=== PATIENT | female | born 1965 | race Caucasian/White ===

== ENCOUNTER 2017-03-27 12:06 | Inpatient (IN) | payer OTHER ==
[2017-03-27 12:28] VITALS: BMI 32.4
--- NOTE | 2017-03-27 13:13 | HP ---
COWS - Scale Resting Pulse: 0= [place] 80 or Below Sweatin=Flushed/Facial Moisture Restless Observation: 3= Extraneous Movement Pupil Size: 2= Moderately Dilated Bone or Joint Aches: 2= Severe Diffuse Aches Runny Nose/ Eye Tearin= Runny Nose/Eyes GI Upset > 30mins: 3= Vomiting/Diarrhea Tremor Observation: 2= Slight Tremor Visible Yawning Observation: 2= >3x During Session Anxiety or Irritability: 2=Irritable/Anxious Goose Flesh Skin: 0=Smooth Skin COWS Score: 20 CIWA Score - CIWA Score Nausea/Vomitin Muscle Tremors: 3 Anxiety: 3 Agitation: 2 Paroxysmal Sweats: 1-Minimal Palms Moist Orientation: 0-Oriented Tacttile Disturbances: 2-Mild Itch/Numbness/Burn Auditory Disturbances: 2-Mild Harshness/Frighten Visual Disturbances: 2-Mild Sensitivity Headache: 2-Mild CIWA-Ar Total Score: 20 Admission ROS BHS - HPI Chief Complaint: i need help to stop using heroin and ativan Allergies/Adverse Reactions: Allergies Allergy/AdvReac Type Severity Reaction Status Date / Time No Known Allergies Allergy Verified 03/27/17 12:37 History of Present Illness: this 51 years old female with heroin and ativan dependence,seeking detox,last treatment [facility] from 02/24/17 to 02/28/17 not completed multiple admissions in detox multiple medical problem type 2 dm,htn,anxiety and depression nicotine dependence longest period of sobriety 10 years Exam Limitations: No Limitations - Ebola screening Have you traveled outside of the country in the last 21 days: No Have you had contact with anyone from an Ebola affected area: No Have you been sick,other than usual withdrawal symptoms: No Do you have a fever: No - Review of Systems Constitutional: Diaphoresis, Loss of Appetite, Malaise, Night Sweats, Changes in sleep, Weakness EENT: reports: Tearing, Nose Congestion Respiratory: reports: No Symptoms reported Cardiac: reports: Palpitations GI: reports: Diarrhea, Nausea, Vomiting, Abdominal cramping : reports: No Symptoms Reported Musculoskeletal: reports: Back Pain, Joint Pain, Muscle Pain, Joint Stiffness Integumentary: reports: Dryness Neuro: reports: Headache, Tremors Endocrine: reports: No Symptoms Reported Hematology: reports: No Symptoms Reported Psychiatric: reports: No Sypmtoms Reported, Judgement Intact, Mood/Affect Appropiate, Anxious, Depressed Patient History - Patient Medical History Hx Anemia: No Hx Asthma: Yes (on albuterol inhaler) Hx Chronic Obstructive Pulmonary Disease (COPD): No Hx Cancer: No Hx Cardiac Disorders: No Hx Congestive Heart Failure: No Hx Hypertension: Yes (on medication) Hx Hypercholesterolemia: No Hx Pacemaker: No HX Cerebrovascular Accident: No Hx Seizures: No Hx Dementia: No Hx Diabetes: Yes (on metformin 500 mgs daily) Hx Gastrointestinal Disorders: No Hx Liver Disease: No Hx Genitourinary Disorders: No Hx Sexually Transmitted Disorders: No (syphilis at 19) Hx Renal Disease (ESRD): No Hx Thyroid Disease: No Hx Human Immunodeficiency Virus (HIV): No (last 2015 negative) Hx Hepatitis C: No Hx Depression: Yes (anxiety ) Hx Suicide Attempt: No Hx Bipolar Disorder: No Hx Schizophrenia: No Other Medical History: no suicidal,no homicidal - Patient Surgical History Past Surgical History: Yes Hx Cholecystectomy: Yes (open cholecystectomy in [facility] in 11/19) - PPD History Previous Implant?: Yes Documented Results: Negative w/o proof Implanted On Prior R Admission?: No PPD to be Administered?: Yes - Reproductive History Patient : No (LMP 8 years ago) - Smoking Cessation Smoking history: Current some day smoker Aproximately how many cigarettes per day: 10 Cigars Per Day: 0 Hx Chewing Tobacco Use: No Initiated information on smoking cessation: Yes 'Breaking Loose' booklet given: 03/27/17 - Substance & Tx. History Hx Alcohol Use: No Hx Substance Use: Yes Substance Use Type: Heroin, Tranquilizers Hx Substance Use Treatment: Yes ([facility] 02/24/[facility] to 02/28/17) - Substances Abused Heroin Route: sniff Frequency: Daily Amount used: 8 to 10 bags/ day Age of first use: 22 Date of Last Use: 03/26/17 ativan Route: Oral Frequency: Daily Amount used: 6 mgs Age of first use: 51 Date of Last Use: 03/27/17 Family Disease History - Family Disease History Family History: Denies Admission Physical Exam BHS - Vital Signs Vital Signs: Vital Signs - 24 hr 03/27/17 12:25 Temperature 98.6 F Pulse Rate 65 Respiratory 18 Rate Blood Pressure 129/87 - Physical General Appearance: Yes: Moderate Distress, Tremorous, Irritable, Sweating, Anxious HEENTM: Yes: Hearing grossly Normal, Normal ENT Inspection, IDALMIS, Pharynx Normal Respiratory: Yes: Lungs Clear, Normal Breath Sounds, No Respiratory Distress Neck: Yes: Within Normal Limits Breast: Yes: Breast Exam Deferred Cardiology: Yes: Tachycardia Abdominal: Yes: Within Normal Limits, Normal Bowel Sounds, Non Tender, Soft Genitourinary: Yes: Within Normal Limits Back: Yes: Muscle Spasm Musculoskeletal: Yes: full range of Motion, Back pain, Joint Stiffness, Muscle Pain Extremities: Yes: Within Normal Limits, Normal Range of Motion, Tremors Neurological: Yes: clinic nurse II-XII NML intact, Alert, Motor Strength 5/5, Normal Mood /Affect Integumentary: Yes: Dry Lymphatic: Yes: Within Normal Limits - Diagnostic (1) Opioid dependence with withdrawal Current Visit: Yes Status: Acute (2) Uncomplicated sedative, hypnotic, or anxiolytic withdrawal Current Visit: Yes Status: Acute (3) Nicotine dependence Current Visit: Yes Status: Acute (4) DM2 (diabetes mellitus, type 2) Current Visit: Yes Status: Acute (5) Essential hypertension Current Visit: Yes Status: Acute (6) Asthma Current Visit: Yes Status: Acute (7) Anxiety and depression Current Visit: Yes Status: Acute Cleared for Admission [facility] - Detox or Rehab [facility] Level of Care: Medically Managed Detox Regimen/Protocol: Methadone/Valium S Breath Alcohol Content Breath Alcohol Content: 0 Urine Pregancy Test - Result Urine Test Results: Negative- NO Line Present Urine Drug Screen - Results Drug Screen Negative: No Urine Drug Screen Results: JUDIE-Cocaine, OPI-Opiates, BZO-Benzodiazepines, MTD- Methadone
[2017-03-27] MEDS ORDERED: ALBUTEROL SO4 6.7 GM HFA INHALER IH PRN (13:40)
[2017-03-27] MEDS ORDERED: P-EPHED 60MG/TRIPROLIDI 2.5MG TABLET PO PRN (13:41)
[2017-03-27] MEDS ORDERED: MAGNESIUM CITRATE 300 ML BOTTLE PO PRN (13:41)
[2017-03-27] MEDS ORDERED: guaiFENesin/D-METHORPHAN HB 10 ML UNIT-DOSE CUPS PO PRN (13:41)
[2017-03-27] MEDS ORDERED: MENTHOL/PHENOL 1 EACH UD MM PRN (13:41)
[2017-03-27] MEDS ORDERED: diazePAM 5 MG TABLET PO ONE (13:41)
[2017-03-27] MEDS ORDERED: IBUPROFEN 400 MG TABLET (FP) PO PRN (13:41)
[2017-03-27] MEDS ORDERED: diazePAM 5 MG TABLET PO PRN (13:41)
[2017-03-27] MEDS ORDERED: MAGNESIUM HYDROX 2400MG/30ML ORAL SUSPENSION 30 ML CUP PO PRN (13:41)
[2017-03-27] MEDS ORDERED: LOPERAMIDE HCL 2 MG CAPSULE PO PRN (13:41)
[2017-03-27] MEDS ORDERED: hydrOXYzine PAMOATE 50 MG CAPSULE (FP) PO PRN (13:41)
[2017-03-27] MEDS ORDERED: ACETAMINOPHEN 325 MG TABLET (FP) PO PRN (13:41)
[2017-03-27] MEDS ORDERED: MAG HYDROX/AL HYDROX/SIMETH 30 ML UNIT-DOSE CUP PO PRN (13:41)
[2017-03-27] MEDS ORDERED: diphenhydrAMINE HCL 50 MG CAPSULE PO PRN (13:41)
[2017-03-27] MEDS ORDERED: METHADONE HCL 10 MG TABLET (FOR DETOX USE ONLY) PO ONE ×2 (14:45→23:00)
[2017-03-27] MEDS: NICOTINE 21 MG/24 HOURS TOPICAL PATCH TD SCH (15:24)
[2017-03-27 19:08] LABS: URINE APPEARANCE SLCLOUDY; URINE BILIRUBIN NEGATIVE (NEGATIVE); URINE BLOOD NEGATIVE (NEGATIVE); URINE COLOR YELLOW; URINE GLUCOSE (UA) NEGATIVE (NEGATIVE); URINE KETONE NEGATIVE (NEGATIVE); URINE LEUK ESTERASE TRACE (NEGATIVE); URINE NITRITE NEGATIVE (NEGATIVE); URINE PROTEIN NEGATIVE (NEGATIVE); URINE UROBILINOGEN NEGATIVE mg/dL (0.2-1.0)
[2017-03-27 19:15] LABS: URINE BACTERIA RARE /hpf (NONE SEEN); URINE MUCUS RARE; URINE RBC 1 /hpf (0-3); URINE WBC 5 /hpf (3-5)
[2017-03-27] MEDS: cloNIDine HCL 0.1 MG TABLET PO SCH (22:22)
[2017-03-27] MEDS: THIAMINE HCL 100 MG TABLET (FP) PO SCH (22:22)
[2017-03-27] MEDS: diazePAM 5 MG TABLET PO SCH (22:22)
[2017-03-28] MEDS: diazePAM 5 MG TABLET PO SCH ×3 (05:50→22:21)
[2017-03-28] MEDS ORDERED: metFORMIN HCL 500 MG TABLET (FP) PO ONE (08:54)
--- NOTE | 2017-03-28 08:57 | CONSULT ---
[facility] Psychiatric Consult - Data Date of interview: 03/28/17 Admission source: [facility] Identifying data: This is 51 years old female with history of no psychiatric hospitalization intoxicated with: Opioids, Xanax and Nicotine Substance Abuse History: - Smoking Cessation. Smoking history: Current some day smoker. Aproximately how many cigarettes per day: 10. Cigars Per Day: 0. Hx Chewing Tobacco Use: No. Initiated information on smoking cessation: Yes. ' Breaking Loose' booklet given: 03/27/17. - Substance & Tx. History. Hx Alcohol Use: No. Hx Substance Use: Yes. Substance Use Type: Heroin, Tranquilizers. Hx Substance Use Treatment: Yes ([facility] 02/24/17 to 02/28/17). - Substances Abused. Heroin. Route: sniff. Frequency: Daily. Amount used: 8 to 10 bags/ day. Age of first use: 22. Date of Last Use: 03/26/17. ativan. Route: Oral. Frequency: Daily. Amount used: 6 mgs. Age of first use : 51. Date of Last Use: 03/27/17 Medical History: Asthma, DM-2, HTN Psychiatric History: Patient reports history of depression and anxiety, reports taking prior to admission: Celexa 20mg poqd. Ambien 10mg po qhs. Seroquel 200mg po qhs Physical/Sexual Abuse/Trauma History: Denies Additional Comment: Celexa 20mg poqd. Ambien 10mg po qhs. Seroquel 200mg po qhs Mental Status Exam - Mental Status Exam Alert and Oriented to: Person Cognitive Function: Fair Patient Appearance: Unkempt Mood: Sad Affect: Flat Patient Behavior: Sedated Speech Pattern: Delayed Voice Loudness: Moderately Soft/Quiet Thought Process: Circumstantial Thought Disorder: Being Controlled Hallucinations: Denies Suicidal Ideation: Denies Homicidal Ideation: Denies Insight/Judgement: Fair Sleep: Difficulty falling asleep Appetite: Weight gain Muscle strength/Tone: Mild Hypotonicity Gait/Station: Shuffling Additional Comments: Celexa 20mg poqd. Ambien 10mg po qhs. Seroquel 200mg po qhs Psychiatric Findings - Problem List ([place] 1, 2,3) (1) Anxiety and depression Current Visit: Yes Status: Acute (2) Nicotine dependence Current Visit: Yes Status: Acute (3) Opioid dependence with withdrawal Current Visit: Yes Status: Acute (4) Uncomplicated sedative, hypnotic, or anxiolytic withdrawal Current Visit: Yes Status: Acute (5) Drug-induced mood disorder Current Visit: Yes Status: Acute - Initial Treatment Plan Initial Treatment Plan: Celexa 20mg poqd. Ambien 10mg po qhs. Seroquel 200mg po qhs
[2017-03-28 09:52] LABS: MCH 25.1 pg (25.7-33.7); MCHC 32.3 g/dl (32.0-36.0); MEAN CELL VOLUME 77.5 fl (80-96); MEAN PLT VOLUME 10.4 fl (7.5-11.1); PLATELET COUNT 166 K/MM3 (134-434); RDW 16.3 % (11.6-15.6); WHITE BLOOD COUNT 8.1 K/mm3 (4.0-10.0)
[2017-03-28] MEDS ORDERED: METHADONE HCL 10 MG TABLET (FOR DETOX USE ONLY) PO SCH (10:00)
[2017-03-28 10:01] LABS: ALBUMIN 3.3 g/dl (3.4-5.0); ANION GAP 5 (8-16); CALCIUM 9.1 mg/dL (8.5-10.1); CO2 29 mmol/L (21-32); GLUCOSE,RANDOM 94 mg/dL (74-106); SGOT/AST 12 U/L (15-37); SGPT/ALT 14 U/L (12-78)
[2017-03-28 10:03] LABS: ALK PHOS 94 U/L (45-117); CREATININE 1.1 mg/dL (0.55-1.02); TOT PROT 6.6 g/dl (6.4-8.2)
--- NOTE | 2017-03-28 10:16 | PN ---
[facility] CIWA - CIWA Score Nausea/Vomitin Muscle Tremors: 3 Anxiety: 3 Agitation: 2 Paroxysmal Sweats: 1-Minimal Palms Moist Orientation: 0-Oriented Tacttile Disturbances: 1-Very Mild Itch/Numbness Auditory Disturbances: 1-Very Mild Visual Disturbances: 1-Very Mild Sensitivity Headache: 2-Mild CIWA-Ar Total Score: 17 BHS COWS - Scale Resting Pulse: 0= [place] 80 or Below Sweatin= Chills/Flushing Restless Observation: 3= Extraneous Movement Pupil Size: 1= Pupils >than Normal Bone or Joint Aches: 2= Severe Diffuse Aches Runny Nose/ Eye Tearin= Runny Nose/Eyes GI Upset > 30mins: 2= Nausea/Diarrhea Tremor Observation of Outstretched Hands: 2= Slight Tremor Visible Yawning Observation: 1= 1-2x During Session Anxiety or Irritability: 2=Irritable/Anxious Goose Flesh Skin: 0=Smooth Skin COWS Score: 16 S Progress Note (SOAP) Subjective: ALERT,IRRITABLE,ANXIOUS,INTERRUPTED SLEEP,PAIN IN THE BODY AND BACK Objective: 03/28/17 10:13 Vital Signs Temperature 97.7 F 03/28/17 09:55 Pulse Rate 63 03/28/17 09:55 Respiratory Rate 18 03/28/17 09:55 Blood Pressure 128/75 03/28/17 09:55 O2 Sat by Pulse Oximetry (%) 03/28/17 10:13 EKG SINUS BRADYCARDIA WITH SINUS ARRHYTHMIA 56/MIN NO CHEST PAIN,NO SOB,NO DIZZINESS Laboratory Last Values WBC 8.1 K/mm3 (4.0-10.0) 03/28/17 06:30 RBC 4.84 M/mm3 (3.60-5.2) 03/28/17 06:30 Hgb 12.1 GM/dL (10.7-15.3) 03/28/17 06:30 Hct 37.5 % (32.4-45.2) 03/28/17 06:30 MCV 77.5 fl (80-96) L 03/28/17 06:30 MCH 25.1 pg (25.7-33.7) L 03/28/17 06:30 MCHC 32.3 g/dl (32.0-36.0) 03/28/17 06:30 RDW 16.3 % (11.6-15.6) H 03/28/17 06:30 Plt Count 166 K/MM3 (134-434) 03/28/17 06:30 MPV 10.4 fl (7.5-11.1) 03/28/17 06:30 POC Glucometer 123 UNITS (()) 03/28/17 05:50 Urine Color Yellow 03/27/17 17:00 Urine Appearance Slcloudy 03/27/17 17:00 Urine pH 5.0 (5.0-8.0) 03/27/17 17:00 Ur Specific [place] 1.015 (1.005-1.025) 03/27/17 17:00 Urine Protein Negative (NEGATIVE) 03/27/17 17:00 Urine Glucose (UA) Negative (NEGATIVE) 03/27/17 17:00 Urine Ketones Negative (NEGATIVE) 03/27/17 17:00 Urine Blood Negative (NEGATIVE) 03/27/17 17:00 Urine Nitrite Negative (NEGATIVE) 03/27/17 17:00 Urine Bilirubin Negative (NEGATIVE) 03/27/17 17:00 Urine Urobilinogen Negative mg/dL (0.2-1.0) 03/27/17 17:00 Ur Leukocyte Esterase Trace (NEGATIVE) 03/27/17 17:00 Urine RBC 1 /hpf (0-3) 03/27/17 17:00 Urine WBC 5 /hpf (3-5) 03/27/17 17:00 Ur Epithelial Cells Few /hpf (FEW) 03/27/17 17:00 Urine Bacteria Rare /hpf (NONE SEEN) 03/27/17 17:00 Urine Mucus Rare 03/27/17 17:00 LABS PENDING Assessment: 03/28/17 10:15 WITHDRAWAL SYMPTOM Plan: CONTINUE DETOX
[2017-03-28 10:23] LABS: BILIRUBIN,TOTAL < 0.1 mg/dL (0.2-1.0)
--- NOTE | 2017-03-28 10:49 | EKG ---
Test Reason : Blood Pressure : / mmHG Vent. Rate : 056 BPM Atrial Rate : 056 BPM P-R Int : 156 ms QRS Dur : 088 ms QT Int : 448 ms P-R-T Axes : 053 017 019 degrees QTc Int : 432 ms SINUS BRADYCARDIA WITH SINUS ARRHYTHMIA OTHERWISE NORMAL ECG NO PREVIOUS ECGS AVAILABLE Confirmed by SWETA ALARCON, KETURAH ([id number]) on 03/28/2017 10:49:29 AM Referred By: Confirmed By:KETURAH SOL MD
[2017-03-28] MEDS: CITALOPRAM HYDROBROMIDE 20 MG TABLET (FP) PO SCH (10:57)
[2017-03-28] MEDS: cloNIDine HCL 0.1 MG TABLET PO SCH ×2 (10:57→22:21)
[2017-03-28] MEDS: LISINOPRIL 20 MG TABLET (FP) PO SCH (10:57)
[2017-03-28] MEDS: PRENATAL VITAMINS W/ FOLIC ACID TABLET (FP) PO SCH (10:57)
[2017-03-28] MEDS: NICOTINE 21 MG/24 HOURS TOPICAL PATCH TD SCH (10:59)
[2017-03-28] MEDS: HYDROCHLOROTHIAZIDE 25 MG TABLET (FP) PO SCH (10:59)
[2017-03-28 11:12] LABS: SICKLE CELL SCREEN POSITIVE (NEGATIVE)
[2017-03-28 13:50] LABS: HIV 1 & 2 AB NEGATIVE; HIV 1 AGp24 NEGATIVE
[2017-03-28] MEDS: THIAMINE HCL 100 MG TABLET (FP) PO SCH (22:21)
[2017-03-28] MEDS: QUEtiapine FUMARATE 200 MG TABLET PO SCH (22:21)
[2017-03-29] MEDS: metFORMIN HCL 500 MG TABLET (FP) PO SCH (07:05)
--- NOTE | 2017-03-29 09:58 | PN ---
[facility] CIWA - CIWA Score Nausea/Vomitin Muscle Tremors: 3 Anxiety: 3 Agitation: 2 Paroxysmal Sweats: 1-Minimal Palms Moist Orientation: 0-Oriented Tacttile Disturbances: 1-Very Mild Itch/Numbness Auditory Disturbances: 1-Very Mild Visual Disturbances: 1-Very Mild Sensitivity Headache: 2-Mild CIWA-Ar Total Score: 17 BHS COWS - Scale Resting Pulse: 0= [place] 80 or Below Sweatin= Chills/Flushing Restless Observation: 3= Extraneous Movement Pupil Size: 1= Pupils >than Normal Bone or Joint Aches: 2= Severe Diffuse Aches Runny Nose/ Eye Tearin= Runny Nose/Eyes GI Upset > 30mins: 3= Vomiting/Diarrhea Tremor Observation of Outstretched Hands: 2= Slight Tremor Visible Yawning Observation: 1= 1-2x During Session Anxiety or Irritability: 2=Irritable/Anxious Goose Flesh Skin: 0=Smooth Skin COWS Score: 17 S Progress Note (SOAP) Subjective: ALERT,IRRITABLE,ANXIOUS,INTERRUPTED SLEEP,TREMOR,PAIN IN THE BODY AND BACK Objective: 03/29/17 09:56 Vital Signs Temperature 97.4 F L 03/29/17 09:45 Pulse Rate 69 03/29/17 09:45 Respiratory Rate 18 03/29/17 09:45 Blood Pressure 134/75 03/29/17 09:45 O2 Sat by Pulse Oximetry (%) Laboratory Last Values WBC 8.1 K/mm3 (4.0-10.0) 03/28/17 06:30 RBC 4.84 M/mm3 (3.60-5.2) 03/28/17 06:30 Hgb 12.1 GM/dL (10.7-15.3) 03/28/17 06:30 Hct 37.5 % (32.4-45.2) 03/28/17 06:30 MCV 77.5 fl (80-96) L 03/28/17 06:30 MCH 25.1 pg (25.7-33.7) L 03/28/17 06:30 MCHC 32.3 g/dl (32.0-36.0) 03/28/17 06:30 RDW 16.3 % (11.6-15.6) H 03/28/17 06:30 Plt Count 166 K/MM3 (134-434) 03/28/17 06:30 MPV 10.4 fl (7.5-11.1) 03/28/17 06:30 Sickle Cell Screen Positive (NEGATIVE) 03/28/17 06:30 Sodium 141 mmol/L (136-145) 03/28/17 06:30 Potassium 3.8 mmol/L (3.5-5.1) 03/28/17 06:30 Chloride 107 mmol/L (98-107) 03/28/17 06:30 Carbon Dioxide 29 mmol/L (21-32) 03/28/17 06:30 Anion Gap 5 (8-16) L 03/28/17 06:30 BUN 28 mg/dL (7-18) H 03/28/17 06:30 Creatinine 1.1 mg/dL (0.55-1.02) H 03/28/17 06:30 Creat Clearance w eGFR 52.36 (>60) 03/28/17 06:30 POC Glucometer 101 UNITS (()) 03/29/17 05:40 Random Glucose 94 mg/dL (74-106) 03/28/17 06:30 Calcium 9.1 mg/dL (8.5-10.1) 03/28/17 06:30 Total Bilirubin < 0.1 mg/dL (0.2-1.0) L 03/28/17 06:30 AST 12 U/L (15-37) L 03/28/17 06:30 ALT 14 U/L (12-78) 03/28/17 06:30 Alkaline Phosphatase 94 U/L (45-117) 03/28/17 06:30 Total Protein 6.6 g/dl (6.4-8.2) 03/28/17 06:30 Albumin 3.3 g/dl (3.4-5.0) L 03/28/17 06:30 Urine Color Yellow 03/27/17 17:00 Urine Appearance Slcloudy 03/27/17 17:00 Urine pH 5.0 (5.0-8.0) 03/27/17 17:00 Ur Specific [place] 1.015 (1.005-1.025) 03/27/17 17:00 Urine Protein Negative (NEGATIVE) 03/27/17 17:00 Urine Glucose (UA) Negative (NEGATIVE) 03/27/17 17:00 Urine Ketones Negative (NEGATIVE) 03/27/17 17:00 Urine Blood Negative (NEGATIVE) 03/27/17 17:00 Urine Nitrite Negative (NEGATIVE) 03/27/17 17:00 Urine Bilirubin Negative (NEGATIVE) 03/27/17 17:00 Urine Urobilinogen Negative mg/dL (0.2-1.0) 03/27/17 17:00 Ur Leukocyte Esterase Trace (NEGATIVE) 03/27/17 17:00 Urine RBC 1 /hpf (0-3) 03/27/17 17:00 Urine WBC 5 /hpf (3-5) 03/27/17 17:00 Ur Epithelial Cells Few /hpf (FEW) 03/27/17 17:00 Urine Bacteria Rare /hpf (NONE SEEN) 03/27/17 17:00 Urine Mucus Rare 03/27/17 17:00 RPR Titer Nonreactive (NONREACTIVE) 03/28/17 06:30 HIV 1&2 Antibody Screen Negative 03/28/17 06:30 HIV P24 Antigen Negative 03/28/17 06:30 Assessment: 03/29/17 09:57 WITHDRAWAL SYMPTOM Plan: CONTINUE DETOX,BGM MONITORING
[2017-03-29] MEDS ORDERED: METHADONE HCL 5 MG TABLET (FOR DETOX USE ONLY) PO SCH (10:00)
[2017-03-29] MEDS: diazePAM 5 MG TABLET PO SCH ×2 (10:33→22:18)
[2017-03-29] MEDS: CITALOPRAM HYDROBROMIDE 20 MG TABLET (FP) PO SCH (10:34)
[2017-03-29] MEDS: HYDROCHLOROTHIAZIDE 25 MG TABLET (FP) PO SCH (10:34)
[2017-03-29] MEDS: NICOTINE 21 MG/24 HOURS TOPICAL PATCH TD SCH (10:34)
[2017-03-29] MEDS: cloNIDine HCL 0.1 MG TABLET PO SCH ×2 (10:34→22:20)
[2017-03-29] MEDS: LISINOPRIL 20 MG TABLET (FP) PO SCH (10:34)
[2017-03-29] MEDS: PRENATAL VITAMINS W/ FOLIC ACID TABLET (FP) PO SCH (10:34)
[2017-03-29] MEDS: QUEtiapine FUMARATE 200 MG TABLET PO SCH (22:18)
[2017-03-29] MEDS: THIAMINE HCL 100 MG TABLET (FP) PO SCH (22:18)
[2017-03-29] MEDS: ZOLPIDEM TARTRATE 10 MG TABLET (PARK CARE ONLY) PO PRN (22:22)
[2017-03-29] MEDS: CYCLOBENZAPRINE HCL 10 MG TABLET (FP) PO PRN (22:22)
[2017-03-30] MEDS: metFORMIN HCL 500 MG TABLET (FP) PO SCH (07:54)
[2017-03-30] MEDS ORDERED: METHADONE HCL 10 MG TABLET (FOR DETOX USE ONLY) PO ONE (10:00)
[2017-03-30] MEDS: LISINOPRIL 20 MG TABLET (FP) PO SCH (10:18)
[2017-03-30] MEDS: HYDROCHLOROTHIAZIDE 25 MG TABLET (FP) PO SCH (10:18)
[2017-03-30] MEDS: NICOTINE 21 MG/24 HOURS TOPICAL PATCH TD SCH (10:18)
[2017-03-30] MEDS: CITALOPRAM HYDROBROMIDE 20 MG TABLET (FP) PO SCH (10:18)
[2017-03-30] MEDS: diazePAM 5 MG TABLET PO SCH ×2 (10:19→22:19)
[2017-03-30] MEDS: cloNIDine HCL 0.1 MG TABLET PO SCH ×2 (10:19→23:13)
[2017-03-30] MEDS: PRENATAL VITAMINS W/ FOLIC ACID TABLET (FP) PO SCH (10:19)
--- NOTE | 2017-03-30 10:19 | PN ---
S Progress Note (SOAP) Subjective: ALERT,IRRITABLE,ANXIOUS,INTERRUPTED SLEEP Objective: 03/30/17 10:18 Vital Signs Temperature 96.3 F L 03/30/17 09:37 Pulse Rate 63 03/30/17 09:37 Respiratory Rate 18 03/30/17 09:37 Blood Pressure 119/81 03/30/17 09:37 O2 Sat by Pulse Oximetry (%) Assessment: 03/30/17 10:18 WITHDRAWAL SYMPTOM BUT LESS Plan: CONTINUE DETOX,MEDICATION ADJUSTED,DISCHARGE IN AM
[2017-03-30] MEDS: QUEtiapine FUMARATE 200 MG TABLET PO SCH (22:19)
[2017-03-30] MEDS: CYCLOBENZAPRINE HCL 10 MG TABLET (FP) PO PRN (22:19)
[2017-03-30] MEDS: ZOLPIDEM TARTRATE 10 MG TABLET (PARK CARE ONLY) PO PRN (22:19)
[2017-03-30] MEDS: THIAMINE HCL 100 MG TABLET (FP) PO SCH (22:20)
[2017-03-30 22:44] VITALS: PULSE 50
[2017-03-31] MEDS ORDERED: METHADONE HCL 5 MG TABLET (FOR DETOX USE ONLY) PO ONE (06:00)
[2017-03-31] MEDS: metFORMIN HCL 500 MG TABLET (FP) PO SCH (06:45)
[2017-03-31 06:54] VITALS: BP 129/62; TEMP 97
--- NOTE | 2017-03-31 08:40 | DS ---
[facility] Detox Discharge Summary Admission Date: 03/27/17 Discharge Date: 03/31/17 - History Present History: Opioid Dependence, Sedative Dependence Additional Comments: FOLLOW UP WITH AFTER CARE ARRANGEMENT Pertinent Past History: NICOTINE DEPENDENCE [id number] MELLITUS ESSENTIAL HYPERTENSION ASTHMA ANXIETY AND DEPRESSION - Physical Exam Results Vital Signs: Vital Signs Temperature 97 F L 03/31/17 06:53 Pulse Rate 50 L 03/31/17 06:53 Respiratory Rate 16 03/31/17 06:53 Blood Pressure 129/62 03/31/17 06:53 O2 Sat by Pulse Oximetry (%) Pertinent Admission Physical Exam Findings: WITHDRAWAL SYMPTOM - Treatment Hospital Course: Detox Protocol Followed, Detoxed Safely, Responded well, Discharged Condition Good Patient has Accepted a Rehab Referral to: DECLINED - Medication Discharge Medications: Ambulatory Orders Citalopram Hydrobromide [Celexa -] 20 mg PO DAILY 03/27/17 Clonidine HCl [Catapres -] 0.1 mg PO BID 03/27/17 Lisinopril/Hydrochlorothiazide [Lisinopril-Hctz 20-25 mg Tab] 20 tab PO DAILY Lorazepam 2 mg PO PRN 03/27/17 Quetiapine Fumarate [Seroquel -] 200 mg PO HS 03/27/17 Zolpidem Tartrate [Ambien] 10 mg PO HS 03/27/17 Citalopram Hydrobromide [Celexa -] 20 mg PO DAILY #30 tablet 03/28/17 Citalopram Hydrobromide [Celexa -] 20 mg PO DAILY #30 tablet 03/28/17 Quetiapine Fumarate [Seroquel -] 200 mg PO HS #30 tab 03/28/17 Quetiapine Fumarate [Seroquel -] 200 mg PO HS #30 tab 03/28/17 Metformin HCl [Glucophage -] 500 mg PO DAILY@0700 #30 tablet 03/31/17 - Diagnosis (1) Opioid dependence with withdrawal Current Visit: Yes Status: Acute (2) Uncomplicated sedative, hypnotic, or anxiolytic withdrawal Current Visit: Yes Status: Acute (3) Nicotine dependence Current Visit: Yes Status: Acute (4) DM2 (diabetes mellitus, type 2) Current Visit: Yes Status: Acute (5) Essential hypertension Current Visit: Yes Status: Acute (6) Asthma Current Visit: Yes Status: Acute (7) Anxiety and depression Current Visit: Yes Status: Acute - AMA Did Patient Leave Against Medical Advice: No
[2017-03-31] MEDS ORDERED: diazePAM 5 MG TABLET PO SCH (10:00)
[2017-03-31] MEDS ORDERED: METHADONE HCL 10 MG TABLET (FOR DETOX USE ONLY) PO SCH (10:00)
[2017-03-31 16:28] LABS: Hgb A2 4.5 % (0.7-3.1)
[2017-04-01] MEDS ORDERED: METHADONE HCL 5 MG TABLET (FOR DETOX USE ONLY) PO SCH (06:00)
== END 2017-03-31 09:48 | disposition home or self-care (01) | DRG 773 ==
LOC: YASAS 12:06 → Y6N 12:53
PROVIDERS: ADMIT Internal Medicine; ATTEND Internal Medicine
PROC: HZ2ZZZZ Detoxification Services for Substance Abuse Treatment (ICD-10-PCS; principal; 2017-03-27)
DX: F11.23 Opioid dependence with withdrawal (principal); F13.230 Sedative, hypnotic or anxiolytic dependence with withdrawal, uncomplicated; F17.210 Nicotine dependence, cigarettes, uncomplicated; F19.24 Other psychoactive substance dependence with psychoactive substance-induced mood disorder; F41.8 Other specified anxiety disorders; E11.9 Type 2 diabetes mellitus without complications; I10 Essential (primary) hypertension; I49.9 Cardiac arrhythmia, unspecified; J45.909 Unspecified asthma, uncomplicated; R00.1 Bradycardia, unspecified; R26.2 Difficulty in walking, not elsewhere classified; Z99.89 Dependence on other enabling machines and devices; Z79.84 Long term (current) use of oral hypoglycemic drugs; Z87.42 Personal history of other diseases of the female genital tract
CPT/HCPCS: 36415; 80053; 81003; 81015; 83021; 85027; 85660; 86593; 87389; 93005; 93010

== ENCOUNTER 2017-10-02 14:13 | Inpatient (IN) | payer OTHER ==
[2017-10-02 16:19] VITALS: BMI 36.1
--- NOTE | 2017-10-02 16:39 | HP ---
COWS - Scale Resting Pulse: 1= [place] 81-100 Sweatin=Flushed/Facial Moisture Restless Observation: 1= Difficult to Sit Still Pupil Size: 2= Moderately Dilated Bone or Joint Aches: 1= Mild Discomfort Runny Nose/ Eye Tearin= Runny Nose/Eyes GI Upset > 30mins: 2= Nausea/Diarrhea Tremor Observation: 2= Slight Tremor Visible Yawning Observation: 1= 1-2x During Session Anxiety or Irritability: 2=Irritable/Anxious Goose Flesh Skin: 0=Smooth Skin COWS Score: 16 CIWA Score - CIWA Score Nausea/Vomitin Muscle Tremors: 3 Anxiety: 4-Mod. Anxious/Guarded Agitation: 4-Moderately Restless Paroxysmal Sweats: 3 Orientation: 0-Oriented Tacttile Disturbances: 0-None Auditory Disturbances: 0-None Visual Disturbances: 0-None Headache: 0-None Present CIWA-Ar Total Score: 17 Admission ROS BHS - HPI Chief Complaint: Withdrawal sx. Allergies/Adverse Reactions: Allergies Allergy/AdvReac Type Severity Reaction Status Date / Time No Known Allergies Allergy Verified 03/27/17 12:37 History of Present Illness: 52 y/o woman with a long hx. of heroin & alcohol dependence is admitted for detox. Pt. has been in previous detox, she reports being drug free from 1989 to 1999. Since then she has not been able to maintain sustain recovery. Exam Limitations: No Limitations - Ebola screening Have you traveled outside of the country in the last 21 days: No (N) Have you had contact with anyone from an Ebola affected area: No Have you been sick,other than usual withdrawal symptoms: No Do you have a fever: No - Review of Systems Constitutional: Diaphoresis EENT: reports: Tearing, Nose Congestion Respiratory: reports: No Symptoms reported Cardiac: reports: No Symptoms Reported GI: reports: Nausea, Abdominal cramping : reports: No Symptoms Reported Musculoskeletal: reports: Joint Pain Integumentary: reports: Sweating Neuro: reports: Tremors Endocrine: reports: Increased Thirst, Increased Urine Hematology: reports: No Symptoms Reported Psychiatric: reports: No Sypmtoms Reported Other Systems: Reviewed and Negative Patient History - Patient Medical History Hx Anemia: No Hx Asthma: Yes (on albuterol inhaler) Hx Chronic Obstructive Pulmonary Disease (COPD): No Hx Cancer: No Hx Cardiac Disorders: No Hx Congestive Heart Failure: No Hx Hypertension: Yes (on medication) Hx Hypercholesterolemia: No Hx Pacemaker: No HX Cerebrovascular Accident: No Hx Seizures: No Hx Dementia: No Hx Diabetes: Yes (on metformin 500 mgs daily) Hx Gastrointestinal Disorders: No Hx Liver Disease: No Hx Genitourinary Disorders: No Hx Sexually Transmitted Disorders: No (syphilis at 19) Hx Renal Disease (ESRD): No Hx Thyroid Disease: No Hx Human Immunodeficiency Virus (HIV): No Hx Hepatitis C: No Hx Depression: Yes (anxiety on celexa & seroquel) Hx Suicide Attempt: No Hx Bipolar Disorder: No Hx Schizophrenia: No - Patient Surgical History Past Surgical History: Yes Hx Cholecystectomy: Yes (open cholecystectomy in [facility] in 11/19) Hx Genitourinary Surgery: Yes (gallstone removal 11/19) - PPD History Date: 03/29/17 Results: 0 mm PPD to be Administered?: No - Reproductive History Patient is a Female of Child Bearing Age (11 -55 yrs old): Yes LMP comment: Post menopause Patient : No - Smoking Cessation Smoking history: Current every day smoker Aproximately how many cigarettes per day: 10 Cigars Per Day: 0 Hx Chewing Tobacco Use: No Initiated information on smoking cessation: Yes 'Breaking Loose' booklet given: 10/02/17 - Substance & Tx. History Hx Alcohol Use: No Hx Substance Use: Yes Substance Use Type: Cocaine, Heroin, Tranquilizers Hx Substance Use Treatment: Yes (detox 03/2017 [facility]) - Substances Abused Alprazolam (Xanax) Route: Oral Frequency: Daily Amount used: 4-6mg Age of first use: 48 Date of Last Use: 09/30/17 Cocaine Route: Inhalation Frequency: Daily Amount used: $20-40 Age of first use: 20 Date of Last Use: 10/01/17 Heroin Route: Inhalation Frequency: Daily Amount used: 12-13 bags Age of first use: 19 Date of Last Use: 10/01/17 Family Disease History - Family Disease History Family Disease History: Other: Brother (drug use) Admission Physical Exam BHS - Vital Signs Vital Signs: Vital Signs - 24 hr 10/02/17 16:17 Temperature 97.5 F L Pulse Rate 95 H Respiratory 18 Rate Blood Pressure 148/76 - Physical General Appearance: Yes: Within Normal Limits HEENTM: Yes: Within Normal Limits Respiratory: Yes: Chest Non-Tender, Lungs Clear, Normal Breath Sounds Neck: Yes: Supple Breast: Yes: Breast Exam Deferred Cardiology: Yes: Systolic Murmur (2nd intercostal right of sternum) Abdominal: Yes: Normal Bowel Sounds, Non Tender, Soft Genitourinary: Yes: Within Normal Limits Back: Yes: Within Normal Limits Musculoskeletal: Yes: Within Normal Limits Extremities: Yes: Tremors Neurological: Yes: Fully Oriented, Alert Integumentary: Yes: Within Normal Limits Lymphatic: Yes: Within Normal Limits - Diagnostic (1) DM2 (diabetes mellitus, type 2) Current Visit: Yes Status: Acute Qualifiers: Diabetes mellitus complication status: without complication Diabetes mellitus buttermaker insulin use: without shelter use Qualified Code(s): E11.9 - Type 2 diabetes mellitus without complications (2) Essential hypertension Current Visit: Yes Status: Acute (3) Opioid dependence with withdrawal Current Visit: Yes Status: Acute (4) Uncomplicated sedative, hypnotic, or anxiolytic withdrawal Current Visit: Yes Status: Acute Cleared for Admission [facility] - Detox or Rehab [facility] Level of Care: Medically Managed Detox Regimen/Protocol: Methadone/Valium [facility] Breath Alcohol Content Breath Alcohol Content: 0 Urine Pregancy Test - Result Urine Test Results: Negative- NO Line Present Urine Drug Screen - Results Drug Screen Negative: No Urine Drug Screen Results: JUDIE-Cocaine, OPI-Opiates, BZO-Benzodiazepines
[2017-10-02] MEDS ORDERED: METHADONE HCL 10 MG TABLET (FOR DETOX USE ONLY) PO ONE ×2 (16:57→23:00)
[2017-10-02] MEDS ORDERED: P-EPHED 60MG/TRIPROLIDI 2.5MG TABLET PO PRN (16:57)
[2017-10-02] MEDS ORDERED: diazePAM 5 MG TABLET PO ONE (16:57)
[2017-10-02] MEDS ORDERED: MAG HYDROX/AL HYDROX/SIMETH 30 ML UNIT-DOSE CUP PO PRN (16:57)
[2017-10-02] MEDS ORDERED: MAGNESIUM CITRATE 300 ML BOTTLE PO PRN (16:57)
[2017-10-02] MEDS ORDERED: LOPERAMIDE HCL 2 MG CAPSULE PO PRN (16:57)
[2017-10-02] MEDS ORDERED: diazePAM 5 MG TABLET PO PRN (16:57)
[2017-10-02] MEDS ORDERED: MAGNESIUM HYDROX 2400MG/30ML ORAL SUSPENSION 30 ML CUP PO PRN (16:57)
[2017-10-02] MEDS: FUROSEMIDE 20 MG TABLET (FP) PO SCH (18:45)
[2017-10-02] MEDS: LISINOPRIL 20 MG TABLET (FP) PO SCH (18:45)
[2017-10-02] MEDS: NICOTINE 21 MG/24 HOURS TOPICAL PATCH TD SCH (18:45)
[2017-10-02 22:30] LABS: URINE APPEARANCE CLEAR; URINE BILIRUBIN NEGATIVE (NEGATIVE); URINE BLOOD NEGATIVE (NEGATIVE); URINE COLOR LTYELLOW; URINE GLUCOSE (UA) NEGATIVE (NEGATIVE); URINE KETONE NEGATIVE (NEGATIVE); URINE LEUK ESTERASE NEGATIVE (NEGATIVE); URINE NITRITE NEGATIVE (NEGATIVE); URINE PROTEIN NEGATIVE (NEGATIVE); URINE UROBILINOGEN NEGATIVE mg/dL (0.2-1.0)
[2017-10-02] MEDS: THIAMINE HCL 100 MG TABLET (FP) PO SCH (22:41)
[2017-10-02] MEDS: diazePAM 5 MG TABLET PO SCH (22:41)
[2017-10-02] MEDS: guaiFENesin/D-METHORPHAN HB 10 ML UNIT-DOSE CUPS PO PRN (22:43)
[2017-10-02] MEDS: IBUPROFEN 400 MG TABLET (FP) PO PRN (23:20)
[2017-10-03] MEDS: metFORMIN HCL 500 MG TABLET (FP) PO SCH (07:38)
[2017-10-03] MEDS: diazePAM 5 MG TABLET PO SCH ×3 (07:38→22:11)
[2017-10-03] MEDS: guaiFENesin/D-METHORPHAN HB 10 ML UNIT-DOSE CUPS PO PRN ×3 (07:39→22:12)
[2017-10-03] MEDS: INSULIN SLIDING SCALE (NOVOLOG) 1 VIAL SQ SCH ×2 (07:47→17:57)
[2017-10-03] MEDS ORDERED: METHADONE HCL 10 MG TABLET (FOR DETOX USE ONLY) PO SCH (10:00)
[2017-10-03 10:14] LABS: HEMATOCRIT 41.6 % (32.4-45.2); HEMOGLOBIN 13.3 GM/dL (10.7-15.3); MCH 25.6 pg (25.7-33.7); MCHC 31.9 g/dl (32.0-36.0); MEAN CELL VOLUME 80.4 fl (80-96); MEAN PLT VOLUME 10.8 fl (7.5-11.1); PLATELET COUNT 150 K/MM3 (134-434); RBC 5.18 M/mm3 (3.60-5.2); RDW 14.6 % (11.6-15.6); WHITE BLOOD COUNT 7.3 K/mm3 (4.0-10.0)
--- NOTE | 2017-10-03 10:15 | PN ---
[facility] CIWA - CIWA Score Nausea/Vomitin-Mild Nausea/No Vomiting Muscle Tremors: 3 Anxiety: 3 Agitation: 3 Paroxysmal Sweats: 1-Minimal Palms Moist Orientation: 0-Oriented Tacttile Disturbances: 1-Very Mild Itch/Numbness Auditory Disturbances: 0-None Visual Disturbances: 0-None Headache: 1-Very Mild CIWA-Ar Total Score: 13 BHS COWS - Scale Resting Pulse: 1= [place] 81-100 Sweatin= Chills/Flushing Restless Observation: 1= Difficult to Sit Still Pupil Size: 0= Normal to Room Light Bone or Joint Aches: 2= Severe Diffuse Aches Runny Nose/ Eye Tearin= Runny Nose/Eyes GI Upset > 30mins: 1= Stomach Cramp Tremor Observation of Outstretched Hands: 1= Tremor [place], Not Seen Yawning Observation: 0= None Anxiety or Irritability: 2=Irritable/Anxious Goose Flesh Skin: 0=Smooth Skin COWS Score: 11 [facility] Progress Note (SOAP) Subjective: joint aches sweat tremor GI upset irritable agitation Objective: 10/03/17 10:17 Vital Signs Temperature 97.5 F L 10/03/17 06:19 Pulse Rate 65 10/03/17 06:19 Respiratory Rate 16 10/03/17 06:19 Blood Pressure 102/52 10/03/17 06:19 O2 Sat by Pulse Oximetry (%) Laboratory Last Values POC Glucometer 100 UNITS (80-120) 10/03/17 07:37 Urine Color Ltyellow 10/02/17 15:18 Urine Appearance Clear 10/02/17 15:18 Urine pH 7.0 (5.0-8.0) D 10/02/17 15:18 Ur Specific [place] 1.011 (1.001-1.035) 10/02/17 15:18 Urine Protein Negative (NEGATIVE) 10/02/17 15:18 Urine Glucose (UA) Negative (NEGATIVE) 10/02/17 15:18 Urine Ketones Negative (NEGATIVE) 10/02/17 15:18 Urine Blood Negative (NEGATIVE) 10/02/17 15:18 Urine Nitrite Negative (NEGATIVE) 10/02/17 15:18 Urine Bilirubin Negative (NEGATIVE) 10/02/17 15:18 Urine Urobilinogen Negative mg/dL (0.2-1.0) 10/02/17 15:18 Ur Leukocyte Esterase Negative (NEGATIVE) 10/02/17 15:18 Assessment: 10/03/17 10:17 withdrawal sx Plan: continue detox
[2017-10-03 10:47] LABS: ALBUMIN 3.4 g/dl (3.4-5.0); ALK PHOS 90 U/L (45-117); ANION GAP 7 (8-16); BILIRUBIN,TOTAL 0.4 mg/dL (0.2-1.0); BLOOD UREA NITROGEN 19 mg/dL (7-18); CALCIUM 8.3 mg/dL (8.5-10.1); CHLORIDE 103 mmol/L (98-107); CO2 31 mmol/L (21-32); CREATININE 1.4 mg/dL (0.55-1.02); GLUCOSE,RANDOM 101 mg/dL (74-106); POTASSIUM 3.6 mmol/L (3.5-5.1); SGOT/AST 11 U/L (15-37); SGPT/ALT 17 U/L (12-78); SODIUM 141 mmol/L (136-145)
[2017-10-03] MEDS: NICOTINE 21 MG/24 HOURS TOPICAL PATCH TD SCH (10:58)
[2017-10-03] MEDS: FUROSEMIDE 20 MG TABLET (FP) PO SCH (10:58)
[2017-10-03] MEDS: PRENATAL VITAMINS W/ FOLIC ACID TABLET (FP) PO SCH (10:58)
[2017-10-03] MEDS: LISINOPRIL 20 MG TABLET (FP) PO SCH (10:58)
[2017-10-03] MEDS: MENTHOL/PHENOL 1 EACH UD MM PRN ×3 (11:02→22:13)
[2017-10-03] MEDS ORDERED: ONDANSETRON *ODT* 4 MG TABLET SL ONE (11:48)
--- NOTE | 2017-10-03 12:29 | CONSULT ---
[facility] Psychiatric Consult - Data Date of interview: 10/03/17 Admission source: [facility] Identifying data: Pt. is a 52 year old female, single, mother of four, and currently unemployed. This is one of multiple admissions for patient. Pt. admitted to for benzodiazepine, cocaine, and opiate dependence. Substance Abuse History: Following information confirmed with Ms. Pérez: - Smoking Cessation. Smoking history: Current every day smoker. Aproximately how many cigarettes per day: 10. Cigars Per Day: 0. Hx Chewing Tobacco Use: No. Initiated information on smoking cessation: Yes. 'Breaking Loose' booklet given: 10/02/17. - Substance & Tx. History. Hx Alcohol Use: No. Hx Substance Use: Yes. Substance Use Type: Cocaine, Heroin, Tranquilizers. Hx Substance Use Treatment: Yes (detox 03/2017 [facility]). - Substances Abused. Alprazolam ( Xanax). Route: Oral. Frequency: Daily. Amount used: 4-6mg. Age of first use : 48. Date of Last Use: 09/30/17. Cocaine. Route: Inhalation. Frequency: Daily. Amount used: $20-40. Age of first use: 20. Date of Last Use: . Heroin. Route: Inhalation. Frequency: Daily. Amount used: 12-13 bags. Age of first use: 19. Date of Last Use: 10/01/17 Medical History: Asthma, hypertension, diabetes Psychiatric History: Pt. denies h/o psychiatric hospitalization and suicide attempts. Reports OPC at [facility]. Diagnosed with anxiety and panic attacks. States she is currently prescribed Paxil 30mg and seroquel 100mg. As per pharmacy claims, a prescription of paxil 30mg was sent on 09/02/2017, and a prescription of Seroquel 50mg was sent on 07/07/17. Pt. is also prescribed ambien. Most recent ambien prescription was sent on 09/30/2017. Physical/Sexual Abuse/Trauma History: Denies. Mental Status Exam - Mental Status Exam Alert and Oriented to: Time, Place, Person Cognitive Function: Good Patient Appearance: Unkempt Mood: Withdrawn Affect: Mood Congruent Patient Behavior: Guarded, Cooperative Speech Pattern: Delayed Voice Loudness: Normal Thought Process: Goal Oriented Thought Disorder: Not Present Hallucinations: Denies Suicidal Ideation: Denies Homicidal Ideation: Denies Insight/Judgement: Poor Sleep: Poorly Appetite: Fair Muscle strength/Tone: Normal Gait/Station: Other (Did not observe patient's gait.) Psychiatric Findings - Problem List ([place] 1, 2,3) (1) Cocaine dependence Current Visit: Yes Status: Acute (2) Opioid dependence with withdrawal Current Visit: Yes Status: Acute (3) Uncomplicated sedative, hypnotic, or anxiolytic withdrawal Current Visit: Yes Status: Acute (4) Nicotine dependence Current Visit: Yes Status: Chronic (5) JULI (generalized anxiety disorder) Current Visit: Yes Status: Chronic Comment: Self reports. Paxil 30mg PO daily ordered. (6) Panic disorder Current Visit: Yes Status: Chronic Comment: Self reports. Paxil 30mg PO ordered. - Initial Treatment Plan Initial Treatment Plan: Psychoeducation provided. Detoxification provided. Paxil 30mg PO daily and seroquel 50mg qhs ordered. Benefits and side effects discussed. Verbal consent given. Will continue to monitor patient.
--- NOTE | 2017-10-03 13:09 | EKG ---
Test Reason : Blood Pressure : / mmHG Vent. Rate : 074 BPM Atrial Rate : 074 BPM P-R Int : 140 ms QRS Dur : 086 ms QT Int : 412 ms P-R-T Axes : 061 005 016 degrees QTc Int : 457 ms NORMAL SINUS RHYTHM POSSIBLE LEFT ATRIAL ENLARGEMENT LEFT VENTRICULAR HYPERTROPHY ABNORMAL ECG WHEN COMPARED WITH ECG OF 27-MAR-2017 13:57, NO SIGNIFICANT CHANGE WAS FOUND Confirmed by BRONWYN ALARCON, DAYNE ([id number]) on 10/03/2017 1:09:41 PM Referred By: Marino Tafoya Confirmed By:DAYNE BARNHART MD
[2017-10-03] MEDS: IBUPROFEN 400 MG TABLET (FP) PO PRN (18:08)
[2017-10-03] MEDS: CYCLOBENZAPRINE HCL 10 MG TABLET (FP) PO PRN (22:10)
[2017-10-03] MEDS: QUEtiapine FUMARATE 50 MG TABLET PO SCH (22:10)
[2017-10-03] MEDS: THIAMINE HCL 100 MG TABLET (FP) PO SCH (22:10)
[2017-10-04] MEDS: guaiFENesin/D-METHORPHAN HB 10 ML UNIT-DOSE CUPS PO PRN ×2 (04:16→22:27)
[2017-10-04] MEDS: MENTHOL/PHENOL 1 EACH UD MM PRN ×2 (04:17→22:27)
[2017-10-04] MEDS: INSULIN SLIDING SCALE (NOVOLOG) 1 VIAL SQ SCH ×2 (08:24→16:51)
[2017-10-04] MEDS: ACETAMINOPHEN 325 MG TABLET (FP) PO PRN ×2 (08:28→22:24)
[2017-10-04] MEDS: metFORMIN HCL 500 MG TABLET (FP) PO SCH (08:28)
[2017-10-04] MEDS ORDERED: ALBUTEROL SO4 18 GM HFA INHALER IH PRN (08:32)
[2017-10-04] MEDS ORDERED: ALBUTEROL SO4 2.5/IPRATROPIUM 0.5 INH SOL 3 ML VIAL.NEB. NEB ONE (08:53)
--- NOTE | 2017-10-04 08:57 | PN ---
[facility] CIWA - CIWA Score Nausea/Vomitin Muscle Tremors: 3 Anxiety: 3 Agitation: 3 Paroxysmal Sweats: 3 Orientation: 0-Oriented Tacttile Disturbances: 0-None Auditory Disturbances: 0-None Visual Disturbances: 0-None Headache: 0-None Present CIWA-Ar Total Score: 15 BHS COWS - Scale Resting Pulse: 1= [place] 81-100 Sweatin= Chills/Flushing Restless Observation: 1= Difficult to Sit Still Pupil Size: 1= Pupils >than Normal Bone or Joint Aches: 1= Mild Discomfort Runny Nose/ Eye Tearin= Nasal Congestion GI Upset > 30mins: 2= Nausea/Diarrhea Tremor Observation of Outstretched Hands: 2= Slight Tremor Visible Yawning Observation: 1= 1-2x During Session Anxiety or Irritability: 2=Irritable/Anxious Goose Flesh Skin: 3=Piloerection COWS Score: 16 S Progress Note (SOAP) Subjective: nausea, sweats, interrupted sleep, anxiety, tremors, wheezing requesting nebulizer and inhaler Objective: 10/04/17 08:55 Vital Signs - 24 hr 10/03/17 10/03/17 10/03/17 11:02 15:29 17:55 Temperature 96.9 F L 98.0 F 102.2 F H Pulse Rate 92 H 96 H 97 H Respiratory 18 18 20 Rate Blood Pressure 149/70 148/70 129/67 10/03/17 10/04/17 10/04/17 21:55 00:30 06:27 Temperature 98.1 F 98.1 F Pulse Rate 94 H 99 H Respiratory 18 18 20 Rate Blood Pressure 131/66 147/72 Laboratory Tests 10/02/17 10/02/17 10/03/17 15:18 18:43 07:30 WBC 7.3 RBC 5.18 Hgb 13.3 Hct 41.6 MCV 80.4 MCH 25.6 L MCHC 31.9 L RDW 14.6 D Plt Count 150 MPV 10.8 Sodium Potassium Chloride Carbon Dioxide Anion Gap BUN Creatinine Creat Clearance w eGFR POC Glucometer 141 Random Glucose Calcium Total Bilirubin AST ALT Alkaline Phosphatase Total Protein Albumin Urine Color Ltyellow Urine Appearance Clear Urine pH 7.0 D Ur Specific [place] 1.011 Urine Protein Negative Urine Glucose (UA) Negative Urine Ketones Negative Urine Blood Negative Urine Nitrite Negative Urine Bilirubin Negative Urine Urobilinogen Negative Ur Leukocyte Esterase Negative RPR Titer 10/03/17 10/03/17 10/03/17 07:30 07:30 07:37 WBC RBC Hgb Hct MCV MCH MCHC RDW Plt Count MPV Sodium 141 Potassium 3.6 Chloride 103 Carbon Dioxide 31 Anion Gap 7 L BUN 19 H Creatinine 1.4 H Creat Clearance w eGFR 39.49 POC Glucometer 100 Random Glucose 101 Calcium 8.3 L Total Bilirubin 0.4 D AST 11 L ALT 17 Alkaline Phosphatase 90 Total Protein 7.0 Albumin 3.4 Urine Color Urine Appearance Urine pH Ur Specific [place] Urine Protein Urine Glucose (UA) Urine Ketones Urine Blood Urine Nitrite Urine Bilirubin Urine Urobilinogen Ur Leukocyte Esterase RPR Titer Nonreactive 10/04/17 07:39 WBC RBC Hgb Hct MCV MCH MCHC RDW Plt Count MPV Sodium Potassium Chloride Carbon Dioxide Anion Gap BUN Creatinine Creat Clearance w eGFR POC Glucometer 129 Random Glucose Calcium Total Bilirubin AST ALT Alkaline Phosphatase Total Protein Albumin Urine Color Urine Appearance Urine pH Ur Specific [place] Urine Protein Urine Glucose (UA) Urine Ketones Urine Blood Urine Nitrite Urine Bilirubin Urine Urobilinogen Ur Leukocyte Esterase RPR Titer wheezing adn cough noted a and o x3 no accessory muscles use, no SOB at rest Assessment: 10/04/17 08:56 withdrawal sx, cont detox, fluids, asthma albuteraol and duoneb ordered , give now
[2017-10-04] MEDS: LISINOPRIL 20 MG TABLET (FP) PO SCH (10:56)
[2017-10-04] MEDS: PRENATAL VITAMINS W/ FOLIC ACID TABLET (FP) PO SCH (10:56)
[2017-10-04] MEDS: diazePAM 5 MG TABLET PO SCH ×2 (10:56→22:23)
[2017-10-04] MEDS: METHADONE HCL 5 MG TABLET (FOR DETOX USE ONLY) PO SCH (10:56)
[2017-10-04] MEDS: FUROSEMIDE 20 MG TABLET (FP) PO SCH (10:56)
[2017-10-04] MEDS: PARoxetine HCL 10 MG TABLET (FP) PO SCH (10:57)
[2017-10-04] MEDS: NICOTINE 21 MG/24 HOURS TOPICAL PATCH TD SCH (10:57)
[2017-10-04] MEDS: ALBUTEROL SO4 2.5/IPRATROPIUM 0.5 INH SOL 3 ML VIAL.NEB. NEB PRN (21:06)
[2017-10-04] MEDS: THIAMINE HCL 100 MG TABLET (FP) PO SCH (22:23)
[2017-10-04] MEDS: QUEtiapine FUMARATE 50 MG TABLET PO SCH (22:24)
[2017-10-04] MEDS: CYCLOBENZAPRINE HCL 10 MG TABLET (FP) PO PRN (22:24)
[2017-10-04] MEDS: NICOTINE POLACRILEX 2 MG GUM BC PRN (23:12)
[2017-10-05] MEDS: ALBUTEROL SO4 2.5/IPRATROPIUM 0.5 INH SOL 3 ML VIAL.NEB. NEB PRN ×2 (06:24→23:28)
[2017-10-05] MEDS: INSULIN SLIDING SCALE (NOVOLOG) 1 VIAL SQ SCH ×2 (06:40→17:09)
[2017-10-05] MEDS: metFORMIN HCL 500 MG TABLET (FP) PO SCH (06:40)
[2017-10-05] MEDS: LISINOPRIL 20 MG TABLET (FP) PO SCH (09:01)
[2017-10-05] MEDS: FUROSEMIDE 20 MG TABLET (FP) PO SCH (09:01)
[2017-10-05] MEDS ORDERED: METHADONE HCL 10 MG TABLET (FOR DETOX USE ONLY) PO SCH (10:00)
--- NOTE | 2017-10-05 10:33 | PN ---
[facility] Progress Note (SOAP) Subjective: mild tremor less sweat calm report feeling better wants to go home 10/06/17 am patient agrees to follow up aftercare as arranged by the counselor Objective: 10/05/17 10:31 Vital Signs Temperature 97.3 F L 10/05/17 06:23 Pulse Rate 75 10/05/17 06:23 Respiratory Rate 18 10/05/17 06:23 Blood Pressure 135/76 10/05/17 06:23 O2 Sat by Pulse Oximetry (%) Laboratory Last Values WBC 7.3 K/mm3 (4.0-10.0) 10/03/17 07:30 RBC 5.18 M/mm3 (3.60-5.2) 10/03/17 07:30 Hgb 13.3 GM/dL (10.7-15.3) 10/03/17 07:30 Hct 41.6 % (32.4-45.2) 10/03/17 07:30 MCV 80.4 fl (80-96) 10/03/17 07:30 MCH 25.6 pg (25.7-33.7) L 10/03/17 07:30 MCHC 31.9 g/dl (32.0-36.0) L 10/03/17 07:30 RDW 14.6 % (11.6-15.6) D 10/03/17 07:30 Plt Count 150 K/MM3 (134-434) 10/03/17 07:30 MPV 10.8 fl (7.5-11.1) 10/03/17 07:30 Sodium 141 mmol/L (136-145) 10/03/17 07:30 Potassium 3.6 mmol/L (3.5-5.1) 10/03/17 07:30 Chloride 103 mmol/L (98-107) 10/03/17 07:30 Carbon Dioxide 31 mmol/L (21-32) 10/03/17 07:30 Anion Gap 7 (8-16) L 10/03/17 07:30 BUN 19 mg/dL (7-18) H 10/03/17 07:30 Creatinine 1.4 mg/dL (0.55-1.02) H 10/03/17 07:30 Creat Clearance w eGFR 39.49 (>60) 10/03/17 07:30 POC Glucometer 109 UNITS (80-120) 10/05/17 06:39 Random Glucose 101 mg/dL (74-106) 10/03/17 07:30 Calcium 8.3 mg/dL (8.5-10.1) L 10/03/17 07:30 Total Bilirubin 0.4 mg/dL (0.2-1.0) D 10/03/17 07:30 AST 11 U/L (15-37) L 10/03/17 07:30 ALT 17 U/L (12-78) 10/03/17 07:30 Alkaline Phosphatase 90 U/L (45-117) 10/03/17 07:30 Total Protein 7.0 g/dl (6.4-8.2) 10/03/17 07:30 Albumin 3.4 g/dl (3.4-5.0) 10/03/17 07:30 Urine Color Ltyellow 10/02/17 15:18 Urine Appearance Clear 10/02/17 15:18 Urine pH 7.0 (5.0-8.0) D 10/02/17 15:18 Ur Specific [place] 1.011 (1.001-1.035) 10/02/17 15:18 Urine Protein Negative (NEGATIVE) 10/02/17 15:18 Urine Glucose (UA) Negative (NEGATIVE) 10/02/17 15:18 Urine Ketones Negative (NEGATIVE) 10/02/17 15:18 Urine Blood Negative (NEGATIVE) 10/02/17 15:18 Urine Nitrite Negative (NEGATIVE) 10/02/17 15:18 Urine Bilirubin Negative (NEGATIVE) 10/02/17 15:18 Urine Urobilinogen Negative mg/dL (0.2-1.0) 10/02/17 15:18 Ur Leukocyte Esterase Negative (NEGATIVE) 10/02/17 15:18 RPR Titer Nonreactive (NONREACTIVE) 10/03/17 07:30 lab noted Assessment: 10/05/17 10:31 withdrawal sx Plan: continue detox
[2017-10-05] MEDS: PARoxetine HCL 10 MG TABLET (FP) PO SCH (10:48)
[2017-10-05] MEDS: PRENATAL VITAMINS W/ FOLIC ACID TABLET (FP) PO SCH (10:49)
[2017-10-05] MEDS: diazePAM 5 MG TABLET PO SCH ×3 (10:49→22:18)
[2017-10-05] MEDS: METHADONE HCL 5 MG TABLET (FOR DETOX USE ONLY) PO SCH (11:03)
[2017-10-05] MEDS: NICOTINE 21 MG/24 HOURS TOPICAL PATCH TD SCH (11:04)
[2017-10-05] MEDS: MENTHOL/PHENOL 1 EACH UD MM PRN ×2 (15:36→22:20)
[2017-10-05] MEDS: THIAMINE HCL 100 MG TABLET (FP) PO SCH (22:18)
[2017-10-05] MEDS: CYCLOBENZAPRINE HCL 10 MG TABLET (FP) PO PRN (22:18)
[2017-10-05] MEDS: guaiFENesin/D-METHORPHAN HB 10 ML UNIT-DOSE CUPS PO PRN (22:18)
[2017-10-05] MEDS: QUEtiapine FUMARATE 50 MG TABLET PO SCH (22:18)
[2017-10-05] MEDS: NICOTINE POLACRILEX 2 MG GUM BC PRN (22:40)
[2017-10-06] MEDS ORDERED: diazePAM 5 MG TABLET PO ONE (06:00)
[2017-10-06] MEDS ORDERED: METHADONE HCL 5 MG TABLET (FOR DETOX USE ONLY) PO SCH (06:00)
[2017-10-06 06:27] VITALS: BP 145/84; PULSE 66; TEMP 98.1
[2017-10-06] MEDS: INSULIN SLIDING SCALE (NOVOLOG) 1 VIAL SQ SCH (08:05)
[2017-10-06] MEDS: metFORMIN HCL 500 MG TABLET (FP) PO SCH (08:05)
--- NOTE | 2017-10-06 09:42 | DS ---
[facility] Detox Discharge Summary Admission Date: 10/02/17 Discharge Date: 10/06/17 - History Present History: Opioid Dependence, Sedative Dependence - Physical Exam Results Vital Signs: Vital Signs Temperature 98.1 F 10/06/17 06:00 Pulse Rate 66 10/06/17 06:00 Respiratory Rate 18 10/06/17 06:00 Blood Pressure 145/84 10/06/17 06:00 O2 Sat by Pulse Oximetry (%) Pertinent Admission Physical Exam Findings: withdrawal sx Vital Signs Temperature 98.1 F 10/06/17 06:00 Pulse Rate 66 10/06/17 06:00 Respiratory Rate 18 10/06/17 06:00 Blood Pressure 145/84 10/06/17 06:00 O2 Sat by Pulse Oximetry (%) Laboratory Last Values WBC 7.3 K/mm3 (4.0-10.0) 10/03/17 07:30 RBC 5.18 M/mm3 (3.60-5.2) 10/03/17 07:30 Hgb 13.3 GM/dL (10.7-15.3) 10/03/17 07:30 Hct 41.6 % (32.4-45.2) 10/03/17 07:30 MCV 80.4 fl (80-96) 10/03/17 07:30 MCH 25.6 pg (25.7-33.7) L 10/03/17 07:30 MCHC 31.9 g/dl (32.0-36.0) L 10/03/17 07:30 RDW 14.6 % (11.6-15.6) D 10/03/17 07:30 Plt Count 150 K/MM3 (134-434) 10/03/17 07:30 MPV 10.8 fl (7.5-11.1) 10/03/17 07:30 Sodium 141 mmol/L (136-145) 10/03/17 07:30 Potassium 3.6 mmol/L (3.5-5.1) 10/03/17 07:30 Chloride 103 mmol/L (98-107) 10/03/17 07:30 Carbon Dioxide 31 mmol/L (21-32) 10/03/17 07:30 Anion Gap 7 (8-16) L 10/03/17 07:30 BUN 19 mg/dL (7-18) H 10/03/17 07:30 Creatinine 1.4 mg/dL (0.55-1.02) H 10/03/17 07:30 Creat Clearance w eGFR 39.49 (>60) 10/03/17 07:30 POC Glucometer 113 UNITS (80-120) 10/06/17 05:44 Random Glucose 101 mg/dL (74-106) 10/03/17 07:30 Calcium 8.3 mg/dL (8.5-10.1) L 10/03/17 07:30 Total Bilirubin 0.4 mg/dL (0.2-1.0) D 10/03/17 07:30 AST 11 U/L (15-37) L 10/03/17 07:30 ALT 17 U/L (12-78) 10/03/17 07:30 Alkaline Phosphatase 90 U/L (45-117) 10/03/17 07:30 Total Protein 7.0 g/dl (6.4-8.2) 10/03/17 07:30 Albumin 3.4 g/dl (3.4-5.0) 10/03/17 07:30 Urine Color Ltyellow 10/02/17 15:18 Urine Appearance Clear 10/02/17 15:18 Urine pH 7.0 (5.0-8.0) D 10/02/17 15:18 Ur Specific [place] 1.011 (1.001-1.035) 10/02/17 15:18 Urine Protein Negative (NEGATIVE) 10/02/17 15:18 Urine Glucose (UA) Negative (NEGATIVE) 10/02/17 15:18 Urine Ketones Negative (NEGATIVE) 10/02/17 15:18 Urine Blood Negative (NEGATIVE) 10/02/17 15:18 Urine Nitrite Negative (NEGATIVE) 10/02/17 15:18 Urine Bilirubin Negative (NEGATIVE) 10/02/17 15:18 Urine Urobilinogen Negative mg/dL (0.2-1.0) 10/02/17 15:18 Ur Leukocyte Esterase Negative (NEGATIVE) 10/02/17 15:18 RPR Titer Nonreactive (NONREACTIVE) 10/03/17 07:30 lab noted - Treatment Hospital Course: Detox Protocol Followed, Detoxed Safely, Responded well, Discharged Condition Good, Rehab Referral Accepted Patient has Accepted a Rehab Referral to: as per counselor arranged - Medication Discharge Medications: Ambulatory Orders Quetiapine Fumarate [Seroquel -] 100 mg PO HS 03/27/17 Paroxetine HCl [Paxil] 30 mg PO DAILY 10/02/17 Amlodipine Besylate [Norvasc -] 5 mg PO DAILY #14 tablet 10/06/17 Lisinopril/Hydrochlorothiazide [Lisinopril-Hctz 20-25 mg Tab] 20 tab PO DAILY # 14 tablet 10/06/17 Metformin HCl [Glucophage -] 500 mg PO DAILY@0700 #30 tablet 10/06/17 - Diagnosis (1) DM2 (diabetes mellitus, type 2) Status: Chronic Qualifiers: Diabetes mellitus complication status: without complication Diabetes mellitus retirement insulin use: without cutter brake lining use Qualified Code(s): E11.9 - Type 2 diabetes mellitus without complications (2) Essential hypertension Status: Chronic (3) Opioid dependence with withdrawal Status: Acute (4) Uncomplicated sedative, hypnotic, or anxiolytic withdrawal Status: Acute - AMA Did Patient Leave Against Medical Advice: No
[2017-10-06] MEDS ORDERED: METHADONE HCL 10 MG TABLET (FOR DETOX USE ONLY) PO SCH (10:00)
[2017-10-06] MEDS ORDERED: diazePAM 5 MG TABLET PO SCH (10:00)
[2017-10-07] MEDS ORDERED: METHADONE HCL 5 MG TABLET (FOR DETOX USE ONLY) PO SCH (06:00)
== END 2017-10-06 08:45 | disposition home or self-care (01) | DRG 773 ==
LOC: YASAS 14:13 → Y6N 17:12
PROVIDERS: ADMIT Internal Medicine; ATTEND Internal Medicine
PROC: HZ2ZZZZ Detoxification Services for Substance Abuse Treatment (ICD-10-PCS; principal; 2017-10-02)
DX: F11.23 Opioid dependence with withdrawal (principal); F13.230 Sedative, hypnotic or anxiolytic dependence with withdrawal, uncomplicated; F14.20 Cocaine dependence, uncomplicated; F41.0 Panic disorder [episodic paroxysmal anxiety]; F41.9 Anxiety disorder, unspecified; F41.1 Generalized anxiety disorder; I10 Essential (primary) hypertension; Z87.42 Personal history of other diseases of the female genital tract
CPT/HCPCS: 36415; 80053; 81003; 82962; 85027; 86593; 93005; 93010; 94640